=== PATIENT | male | born 1960 | race Caucasian/White ===

== ENCOUNTER 2021-06-18 19:39 | Emergency (ER) | payer OTHER ==
[~2021-06-18] VITALS: Ht 177.8 cm; Wt 94.8 kg
[2021-06-18 19:47] VITALS: BP_SYST 133
[2021-06-18] MEDS ORDERED: INSULIN REGULAR, HUMAN 10 UNITS/0.1 ML INJ SUBCUT ONE (21:00)
[2021-06-18 21:10] VITALS: BP_SYST 132
[2021-06-18] MEDS ORDERED: NEU300 PO (21:17)
[2021-06-18] MEDS ORDERED: TAMS-11 PO (21:17)
[2021-06-18] MEDS ORDERED: TEMA7.5C PO (21:18)
[2021-06-18] MEDS ORDERED: CYCL10TA24 PO (21:20)
== END 2021-06-18 21:10 | disposition home or self-care (01) ==
LOC: SED 19:39
DX: E11.9 Type 2 diabetes mellitus without complications (principal); I10 Essential (primary) hypertension; Z76.0 Encounter for issue of repeat prescription
CPT/HCPCS: 82962; 99283; J1815